=== PATIENT | female | born 1955 | race Hispanic/Latino ===

== ENCOUNTER → 2023-02-05 | Outpatient (CLI) | payer OTHER ==
[2023-02-05 12:12] LABS: BASOPHILS # (AUTO) 0.06 K/uL (0.00-0.20); BASOPHILS % (AUTO) 0.6 % (0.0-5.0); EOSINOPHILS # (AUTO) 0.18 K/uL (0.00-0.70); EOSINOPHILS % (AUTO) 1.7 % (0.0-8.0); HEMATOCRIT 36.5 % (36-48); IMMATURE GRANULOCYTE ABSOLUTE 0.08 K/uL (0-1); LYMPHOCYTES # (AUTO) 2.7 K/uL (1.0-4.8); LYMPHOCYTES % (AUTO) 25.6 % (21.0-51.0); MEAN CORPUSCULAR HGB CONC 31.5 g/dL (32.0-36.0); MONOCYTES # (AUTO) 0.8 K/uL (0.1-1.0); MONOCYTES % (AUTO) 7.6 % (3.0-13.0); NEUTROPHILS # (AUTO) 6.7 K/uL (1.8-7.7); NEUTROPHILS % (AUTO) 63.7 % (40.0-77.0); PLATELET COUNT (AUTO) 320 K/uL (130-400); RED CELL DISTRIBUTION WIDTH 14.7 % (11.0-15.5); WHITE BLOOD COUNT (AUTO) 10.5 K/uL (4.8-10.8)
[2023-02-05 12:21] LABS: INR < 0.93 (0.85-1.15); PROTHROMBIN TIME 9.8 SEC (9.6-11.6)
[2023-02-05 12:22] LABS: PARTIAL THROMBOPLASTIN TIME 25.3 SEC (26.3-35.5)
[2023-02-05 12:26] LABS: CREATININE 0.7 mg/dL (0.5-1.5); POTASSIUM 4.1 mmol/L (3.5-5.1)
== END | disposition home or self-care (01) ==
LOC: LAB 08:16
PROVIDERS: ATTEND Internal Medicine Cardiovascular Disease
DX: I73.9 Peripheral vascular disease, unspecified (principal); I87.2 Venous insufficiency (chronic) (peripheral); I10 Essential (primary) hypertension; E78.5 Hyperlipidemia, unspecified; I45.10 Unspecified right bundle-branch block; M79.662 Pain in left lower leg; M79.661 Pain in right lower leg; E11.51 Type 2 diabetes mellitus with diabetic peripheral angiopathy without gangrene; Z79.82 Long term (current) use of aspirin; Z79.84 Long term (current) use of oral hypoglycemic drugs; Z79.899 Other long term (current) drug therapy
CPT/HCPCS: 36415; 80048; 85025; 85610; 85730

== ENCOUNTER → 2023-02-11 | Outpatient (CLI) | payer OTHER | END | disposition home or self-care (01) | LOC: SHCH 08:28 | PROVIDERS: ATTEND Internal Medicine Cardiovascular Disease | DX: I11.9 Hypertensive heart disease without heart failure (principal); I87.2 Venous insufficiency (chronic) (peripheral); I25.10 Atherosclerotic heart disease of native coronary artery without angina pectoris; I45.10 Unspecified right bundle-branch block; E78.5 Hyperlipidemia, unspecified; E11.9 Type 2 diabetes mellitus without complications | CPT/HCPCS: 93306; 93970 ==

== ENCOUNTER → 2023-05-27 | Outpatient (CLI) | payer OTHER ==
[2023-05-27] MEDS: REGADENOSON 0.4 MG/5 ML PF SYG IVP ONE (11:52)
== END | disposition home or self-care (01) ==
LOC: SHCH 08:26
PROVIDERS: ATTEND Internal Medicine Cardiovascular Disease
DX: I45.10 Unspecified right bundle-branch block (principal); I20.0 Unstable angina
CPT/HCPCS: 78452; 93017; J2785; A9500 ×2; 96374

== ENCOUNTER 2024-01-24 20:12 | Inpatient (IN) | payer OTHER ==
[~2024-01-24] VITALS: Ht 152.4 cm; Wt 82.6 kg
--- NOTE | 2024-01-24 20:27 | NUR ---
PATIENT REPORTS WAS ATTEPTING TO SIT ON A CHAIR WITH WHEELS AT HOME WHEN THE CHAIR MOVED AND SHE FELL BACK HURTING HER TAILBONE AND LEFT SIDE OF HEAD. 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
[2024-01-24 21:21] LABS: BASOPHILS # (AUTO) 0.06 K/uL (0.00-0.20); BASOPHILS % (AUTO) 0.5 % (0.0-5.0); EOSINOPHILS # (AUTO) 0.08 K/uL (0.00-0.70); EOSINOPHILS % (AUTO) 0.7 % (0.0-8.0); HEMATOCRIT 31.6 % (36-48); IMMATURE GRANULOCYTE ABSOLUTE 0.09 K/uL (0-1); LYMPHOCYTES # (AUTO) 2.8 K/uL (1.0-4.8); LYMPHOCYTES % (AUTO) 23.5 % (21.0-51.0); MEAN CORPUSCULAR HEMOGLOBIN 28.7 pg (27.0-33.0); MEAN CORPUSCULAR HGB CONC 32.3 g/dL (32.0-36.0); MONOCYTES # (AUTO) 0.9 K/uL (0.1-1.0); MONOCYTES % (AUTO) 7.4 % (3.0-13.0); NEUTROPHILS # (AUTO) 8.1 K/uL (1.8-7.7); NEUTROPHILS % (AUTO) 67.2 % (40.0-77.0); PLATELET COUNT (AUTO) 273 K/uL (130-400); RED BLOOD CELL COUNT(AUTO) 3.55 MIL/uL (4.00-5.50); RED CELL DISTRIBUTION WIDTH 14.4 % (11.0-15.5); WHITE BLOOD COUNT (AUTO) 12.1 K/uL (4.8-10.8)
[2024-01-24 21:24] LABS: CREATININE 1.4 mg/dL (0.5-1.0); POTASSIUM 4.1 mmol/L (3.5-5.1)
--- NOTE | 2024-01-24 21:35 | HMCIMG ---
SACRUM/COCCYX 2+VWS INDICATION: FALL INJURY TECHNIQUE: SACRUM/COCCYX 2+VWS. FINDINGS/IMPRESSION: No displaced fracture or dislocation is seen. Mild deformity of the distal sacrum which may represent nondisplaced fracture of the proper clinical setting. Correlate clinically. There is mild soft tissue swelling Diffuse osteopenia is seen degrading evaluation of the study.
--- NOTE | 2024-01-24 21:35 | HMCIMG ---
PELVIS 1-2VWS HISTORY: fall on the buttocks TECHNIQUE: Frontal view of the pelvis was performed. FINDINGS/IMPRESSION: No displaced fracture or dislocation is identified. Correlate clinically. The visualized soft tissues appear grossly within normal limits. No radiopaque foreign body is seen.
--- NOTE | 2024-01-24 22:27 | ERN ---
ED Note History of Present Illness Stated Complaint: FALL Chief Complaint: Mechanical Fall Time Seen by MD: 20:16 Dictation: This is a 68-year-old female who presented to the emergency room after sustaining a fall 7:00 p.m.. She came in with her daughter who indicated that she was trying to sit as she was getting ready to eat and missed the chair and landed on the floor not only injuring her gluteal area and lower back but she also hit her head on the left side. No history of any loss of consciousness. No headaches. No blurred vision diplopia motor weakness or seizure activity no facial droop or slurred speech. She was only complaining of some discomfort in the gluteal area. Denied any deformities, bruises or abrasions. No lacerations or any active bleeding. Temperature 97.7 pulse 84 respirations 16 blood pressure 166/71 with a pulse oximetry of 99% on room Her chronic medical problems include diabetes mellitus, hypercholesterolemia Allergies: Coded Allergies: tramadol (Unverified Allergy, Unknown, 01/24/24) Past Medical History Past Medical History: Diabetes-Type II, High Cholesterol Surgical History: None Family History: Negative Social History: Negative History: Not Applicable RN Note Reviewed/Agreed w/PFSH: Yes Review of System Dictation Constitutional: Negative for fever,chills, and weight loss Eyes: Negative for injury, pain,redness, and discharge ENT: Negative for injury,pain or swelling Cardiovascular: Negative for chest pain, palpitations, and edema Respiratory: Negative for shortness of breath, cough, and wheezing, Abdomen/GI: Negative for abdominal pain, nausea, vomiting, diarrhea, and constipation Back: Positive for injury and pain mostly in the gluteal area and lower back : Negative for injury, bleeding and discharge MS/Extremity: Negative for injury and deformity Skin: Negative for rash, and discoloration Neuro: Negative for headache, weakness, numbness, tingling, and seizure Psych: Negative for suicide ideation, homicidal ideation, and hallucinations Initial Vital Sign VS Vital Signs Date Time Temp Pulse Resp B/P (MAP) Pulse Ox O2 Delivery O2 Flow Rate FiO2 01/24/24 20:13 97.7 84 16 166/71 99 Room Air 01/24/24 20:28 0 21 Physical Exam Dictation General: awake, alert, NAD Head/Face: Normocephalic, atraumatic Eyes: PERRL, EOMI, vision at baseline ENT: oral cavity clear, TMs clear, no signs of infection Neck: Trachea midline, supple, no nuchal rigidity Cardiovascular: RRR, normal S1/S2, No MRGs, no JVD Respiratory: CTAB, no respiratory distress, No rales or wheezes Abdomen: Soft, non-tender, non-distended, normal bowel sounds, no guarding or rebound. Skin: Warm, dry, normal turgor, no rash MS/Extremity: Pulses equal, no cyanosis, neurovascular intact, FROM Neuro: COAx4, GCS 15, strength 5/5, CN 2-12 intact, normal cerebellar exam, normal gait, Psych: Normal behavior, mood, and affect normal Extremities-trace edema without any palpable cords, Homans sign is negative Results (Laboratory/Radiology) Laboratory/Radiology Laboratory Tests Test 01/24/24 21:04 White Blood Count 12.1 K/uL (4.8-10.8) H Red Blood Count 3.55 MIL/uL (4.00-5.50) L Hemoglobin 10.2 g/dL (12.0-16.0) L Hematocrit 31.6 % (36-48) L Mean Corpuscular Volume 89.0 fL (79-99) Mean Corpuscular Hemoglobin 28.7 pg (27.0-33.0) Mean Corpuscular Hemoglobin Concent 32.3 g/dL (32.0-36.0) Red Cell Distribution Width 14.4 % (11.0-15.5) Platelet Count 273 K/uL (130-400) Mean Platelet Volume 11.0 fL (7.5-10.5) H Immature Granulocyte % (Auto) 0.7 % (0-1) Neutrophils (%) (Auto) 67.2 % (40.0-77.0) Lymphocytes (%) (Auto) 23.5 % (21.0-51.0) Monocytes (%) (Auto) 7.4 % (3.0-13.0) Eosinophils (%) (Auto) 0.7 % (0.0-8.0) Basophils (%) (Auto) 0.5 % (0.0-5.0) Neutrophils # (Auto) 8.1 K/uL (1.8-7.7) H Lymphocytes # (Auto) 2.8 K/uL (1.0-4.8) Monocytes # (Auto) 0.9 K/uL (0.1-1.0) Eosinophils # (Auto) 0.08 K/uL (0.00-0.70) Basophils # (Auto) 0.06 K/uL (0.00-0.20) Absolute Immature Granulocyte (auto 0.09 K/uL (0-1) Nucleated Red Blood Cells 0.0 % (0.0-0.19) Sodium Level 138 mmol/L (136-145) Potassium Level 4.1 mmol/L (3.5-5.1) Chloride Level 104 mmol/L (101-111) Carbon Dioxide Level 28 mmol/L (21-32) Blood Urea Nitrogen 27 mg/dL (7-18) H Creatinine 1.4 mg/dL (0.5-1.0) H Glomerular Filtration Rate Calc 40 mL/min (>90) Random Glucose 128 mg/dL (70-105) H Total Calcium 9.3 mg/dL (8.5-10.1) Total Creatine Kinase 52 U/L (21-232) Labs Reviewed?: Yes ED Course ED Course Orders Procedure Category Date Status Time Sacrum/Coccyx 2+Vws RAD 01/24/24 Resulted 20:32 Pelvis 1-2vws RAD 01/24/24 Resulted 20:26 Ct Head/Brain W/O CT 01/24/24 Resulted Contrast 20:55 Cbc With Differential LAB 01/24/24 Complete 20:55 Basic Metabolic Panel LAB 01/24/24 Complete 20:55 Urinalysis Profile LAB 01/24/24 Logged 20:55 Morphine 2mg Syg PHA 01/24/24 Complete (Morphine 2mg Syg) 23:00 Remove Pt Off CPOE 01/24/24 Transmitted C-Collar. (Er) 22:37 Creatine Kinase, Total LAB 01/24/24 Complete 22:40 0.9%Nacl 1000ml (Ns PHA 01/24/24 In Process 1000ml) 23:00 Edm Admit Bridge Order ADM 01/24/24 Transmitted 23:11 Admit Orders ADM 01/24/24 Transmitted 23:11 Admit Orders ADM 01/24/24 Transmitted 23:12 Consistent Carb DIET 01/25/24 Transmitted Breakfast Acetaminophen 325 Tab PHA 01/24/24 In Process (Tylenol 325mg Tab 23:30 Ondansetron 4mg Inj PHA 01/24/24 In Process (Zofran 4mg Inj) 23:30 Morphine 2mg Syg PHA 01/24/24 In Process (Morphine 2mg Syg) 23:30 Enoxaparin Sodium 30 PHA 01/25/24 In Process Mg/0.3 Ml (Lovenox) 09:00 Insulin Lispro 100 PHA 01/24/24 In Process Unit/Ml 3ml (Humalog 23:30 Glucometer Checks CPOE 01/24/24 Transmitted Ac/Hs 23:12 Cbc With Differential LAB 01/25/24 Verified 04:00 Basic Metabolic Panel LAB 01/25/24 Verified 04:00 Magnesium LAB 01/25/24 Verified 04:00 Hemoglobin A1c LAB 01/25/24 Verified 04:00 *Nursing CPOE 01/24/24 Transmitted Communication: 23:12 Current Medications Medications (Trade) Dose Ordered Sig/[place] Route PRN Reason Start Time Stop Time Status Last Admin Dose Admin Morphine Sulfate (morPHINE 2MG SYG) 2 mg ONCE ONCE IVP 01/24/24 23:00 01/24/24 23:01 DC 01/24/24 23:01 Sodium Chloride 1,000 ml @ 125 mls/hr ONCE ONCE IV 01/24/24 23:00 01/25/24 06:59 01/24/24 23:01 Vital Signs Date Time Temp Pulse Resp B/P (MAP) Pulse Ox O2 Delivery O2 Flow Rate FiO2 01/24/24 23:11 66 18 132/47 97 Room Air* 0 21 01/24/24 20:28 78 18 174/69 99 Room Air* 0 21 01/24/24 20:13 97.7 84 16 166/71 99 Room Air We will perform diagnostic labs, advanced imaging and administer medications according to the patient's complaint. Once the results are available, will review and personally interpreted the labs to rule out any acute life- threatening emergency the trach require immediate intervention and treatment. I will then re-evaluate the patient after treatment and diagnostic exams have return to determine whether the patient requires any further testing, can safely be discharged home or need further admission to hospital for additional treatment and evaluation. Reviewed labs CBC showed a white count of 12.1 hemoglobin 10.2. BNP 7 showed a BUN and creatinine of 27 and 1.4. Do not have any old labs to compare. Blood glucose is slightly elevated. 10:25 p.m. x-ray of the pelvis as well as lower sacral area was overall unremarkable although the radiologist did mention that in appropriate clinical setting coccyx area could have a nondisplaced fracture. CT scan of the head is pending at this time I recommended admission to the hospital for the next 24-48 hours not only for pain management, for gentle hydration with a potential rhabdomyolysis and to pursue additional imaging studies of lumbar area or hollow viscera as needed based on her any additional or new symptoms. She is agreeable 11:00 p.m. patient accepted by covering for Dr. Chandra for admission and further management. Medical Decision Making MDM MDM: Differential diagnosis: Contusion, ligamental tear, compression fractures, hollow viscus injury Rationale: Tests considered and ordered secondary to shared decision making include: labs, ECG and radiology Previous outside records reviewed: Old ER visits. Risk of complication and/or morbidity or mortality of patient management: None Medications-Per medication reconciliation Need for hospitalization: Patient does meet criteria for hospitalization. Need for emergency major/minor surgery: No There are no social concerns with this patient. Prescription drug management Prescriptions will include symptomatic care Patient's prior external medical records from other ER visits were reviewed by me as indicated. Prior testing and results from previous visits were reviewed. Prior tests were taken into account with medical decision making and resource utilization, independent historian/historians were used to obtain complete medical history. I independently interpreted the test that were performed, results were reviewed by me and considered findings on radiology if ordered. Medical management and examination interpretation discussions were had by me with other qualified healthcare professionals as indicated for the patient's care. Problem List Problem List: (1) Fall from standing (2) Closed head injury (3) Scalp hematoma (4) Uncontrolled hypertension (5) Acute kidney injury DX & DISP Disposition: Inpatient Departure Impression: Primary Impression: Fall from standing Additional Impressions: Closed head injury, Scalp hematoma, Uncontrolled hypertension, Acute kidney injury, Pain, Fx sacrum/coccyx-closed Condition: Stable Additional Instructions: Patient was informed of all the diagnostic labs and procedures conducted in the emergency room today and demonstrated understanding of the results. I personally reviewed and interpreted all the diagnostic exams performed in the ER today. The patient will be admitted to the hospital for further treatment and evaluation. Disposition-admit to facility Condition-stable/guarded Course-uncertain at this time Pain status-decreased Assessment-exam unchanged Admission Certification- I certify that the patients status is appropriate and is based on my best clinical judgment and the patient's condition as documented in the medical records Referrals: GRANT CHANDRA MD (PCP) ERA JC MD Jan 24, 2024 22:27
--- NOTE | 2024-01-24 22:34 | HMCIMG ---
CT HEAD/BRAIN W/O CONTRAST HISTORY: Postop injury COMPARISON: None TECHNIQUE: Multiple sequential axial images of the head were obtained from the base of the skull through vertex. Patient was not given contrast through intravenous route. FINDINGS: The ventricles and extraventricular CSF spaces are dilated consistent with cerebral atrophy. Nonspecific white matter changes seen. There are bilateral basal ganglia calcifications There is no midline shift, mass effect or herniation. No acute intracranial bleed is seen. Visualized portion of the paranasal sinuses are grossly within normal limits. IMPRESSION: 1. No acute intracranial bleed is seen. 2. Atrophy with white matter changes. CT was performed with one or more following dose reduction techniques: automated exposure control, adjustment of the mA and kv according to patient's size, or use of a iterative reconstruction technique.
[2024-01-24] MEDS: 0.9%NACL 1000ML 1,000 ML IV ONE (23:01)
[2024-01-24] MEDS: morPHINE 2 MG SYG IVP ONE (23:01)
[2024-01-24] MEDS ORDERED: acetaMINOPHEN 325 MG TAB PO PRN (23:30)
[2024-01-24] MEDS ORDERED: morPHINE 2 MG SYG IVP PRN (23:30)
[2024-01-24] MEDS ORDERED: INSULIN LISpro 100 UNIT/ML 3ML SQ PRN (23:30)
[2024-01-24] MEDS ORDERED: ondanSETRON 4MG INJ IVP PRN (23:30)
[2024-01-24 23:45] VITALS: BP 160/86; PULSE 68; RESP 19; TEMP 97.7
[2024-01-25 03:48] LABS: ADD UA MICROSCOPIC YES; APPEARANCE,URINE CLEAR (CLEAR); BILIRUBIN,URINE NEGATIVE (NEGATIVE); COLOR,URINE COLORLESS (YELLOW); GLUCOSE, URINE (UA) NEGATIVE (NEGATIVE); KETONES,URINE NEGATIVE (NEGATIVE); LEUKOCYTE ESTERASE ,URINE 25 Leu/uL (NEGATIVE); NITRATE,URINE NEGATIVE (NEGATIVE); OCCULT BLOOD,URINE NEGATIVE (NEGATIVE); PROTEIN,URINE NEGATIVE (NEGATIVE); UROBILINOGEN,URINE 0.2 mg/dL (0.2-1.0)
[2024-01-25 03:50] LABS: RBC,URINE 0-1 /HPF (0-1); SQUAMOUS EPITHELIAL CELL,UR RARE /HPF (0-2)
[2024-01-25 04:00] VITALS: BP 127/56; PULSE 67; RESP 17; TEMP 97.5
[2024-01-25 05:08] LABS: BASOPHILS # (AUTO) 0.05 K/uL (0.00-0.20); BASOPHILS % (AUTO) 0.5 % (0.0-5.0); EOSINOPHILS # (AUTO) 0.13 K/uL (0.00-0.70); EOSINOPHILS % (AUTO) 1.4 % (0.0-8.0); HEMATOCRIT 30.1 % (36-48); IMMATURE GRANULOCYTE ABSOLUTE 0.06 K/uL (0-1); LYMPHOCYTES # (AUTO) 2.8 K/uL (1.0-4.8); LYMPHOCYTES % (AUTO) 29.8 % (21.0-51.0); MEAN CORPUSCULAR HEMOGLOBIN 28.2 pg (27.0-33.0); MEAN CORPUSCULAR HGB CONC 31.6 g/dL (32.0-36.0); MEAN CORPUSCULAR VOLUME 89.3 fL (79-99); MONOCYTES # (AUTO) 0.7 K/uL (0.1-1.0); NEUTROPHILS # (AUTO) 5.7 K/uL (1.8-7.7); NEUTROPHILS % (AUTO) 60.7 % (40.0-77.0); PLATELET COUNT (AUTO) 240 K/uL (130-400); RED BLOOD CELL COUNT(AUTO) 3.37 MIL/uL (4.00-5.50); RED CELL DISTRIBUTION WIDTH 14.5 % (11.0-15.5); WHITE BLOOD COUNT (AUTO) 9.4 K/uL (4.8-10.8)
[2024-01-25 05:15] LABS: CREATININE 1.1 mg/dL (0.5-1.0); MAGNESIUM 1.8 mg/dL (1.80-2.40)
[2024-01-25 05:27] LABS: HEMOGLOBIN A1C 8.1 % (4.0-6.0)
[2024-01-25 07:55] VITALS: BP 122/65; PULSE 63; RESP 18; TEMP 98.1
[2024-01-25] MEDS ORDERED: ASPI-1197 PO (08:27)
[2024-01-25] MEDS ORDERED: LOSA100T59 PO (08:27)
[2024-01-25] MEDS ORDERED: DOXY100C5 PO (08:27)
[2024-01-25] MEDS ORDERED: GLIP-162 PO (08:27)
[2024-01-25] MEDS ORDERED: ATOR20TA65 PO (08:27)
[2024-01-25] MEDS ORDERED: METF-444 PO (08:27)
[2024-01-25] MEDS ORDERED: PANT20TA18 PO (08:28)
[2024-01-25] MEDS ORDERED: SEMA1PEN3 SQ (08:29)
[2024-01-25] MEDS: acetaMINOPHEN 325 MG TAB PO PRN (08:32)
[2024-01-25 08:33] VITALS: O2SAT 97
[2024-01-25] MEDS: ENOXAPARIN SODIUM 30 MG/0.3 ML SQ SCH (08:33)
[2024-01-25] MEDS: PANTOPrazole 40 MG TAB DR PO SCH (08:56)
[2024-01-25] MEDS: glipiZIDE XL 5MG TAB PO SCH (08:56)
[2024-01-25] MEDS ORDERED: DOXYCYCLINE HYCLATE PO SCH (09:00)
[2024-01-25] MEDS ORDERED: ASPIRIN 81MG CHEW TAB PO SCH (09:00)
[2024-01-25] MEDS: INSULIN humuLIN R 100 UNIT/ML 3ML SQ SCH (11:30)
--- NOTE | 2024-01-25 11:34 | NUR ---
DCP Pt asha, aermichael, oriented lives with spouse Finesse Rausch [phone] in mobile home. Pt states she has a cane and a provider from [facility] home care. Pt anticipates discharge plan is for home. Addendum: 01/25/24 at 1138 by BINDU HERNANDEZ RN Amended: Links added.
--- NOTE | 2024-01-25 11:40 | HMCIMG ---
CT PELVIS W/O CONTRAST HISTORY: possible fracture TECHNIQUE: CT pelvis was performed without contrast. Coronal and sagittal reformats were obtained. CT was performed with one or more of the following dose reduction techniques: Automated exposure control, adjustment of the mA and/or kV according to the patient's size, or use of the iterative reconstruction technique. FINDINGS: No displaced fracture or dislocation is seen. Diffuse osteopenia is seen degrading evaluation of the study. 1 cm sclerotic focus seen in the neck of the right femur and 1.2 cm sclerotic focus in superior left acetabulum which may may represent bone islands, other etiologies not excluded. Correlate clinically. IMPRESSION: 1. No displaced fracture or dislocation is seen. 2. Diffuse osteopenia is seen degrading evaluation of the study. 3. 1 cm sclerotic focus seen in the neck of the right femur and 1.2 cm sclerotic focus in superior left acetabulum which may may represent bone islands, other etiologies not excluded. Correlate clinically.
[2024-01-25 11:50] VITALS: BP 142/69; PULSE 70; RESP 18; TEMP 97.7
[2024-01-25] MEDS: LACTULOSE 20 GM/30 ML UDCUP PO SCH (12:09)
[2024-01-25] MEDS: MAGNESIUM 2GM PREMIX 50ML 50 ML IV PRN (12:18)
--- NOTE | 2024-01-25 12:56 | NUR ---
RAD NUCLEAR MEDICINE SPOKE TO NURSE ELIZONDO TO CONFIRM DR WANTED A WHOLE BODY SCAN DUE TO ORDER DX. NURSE ELIZONDO STATED DR. CHAU WAS ORDERED THE WHOLE BODY BONE SCAN.
[2024-01-25 16:28] VITALS: BP 130/60; PULSE 64; RESP 18; TEMP 97.9
[2024-01-25 20:00] VITALS: BP 148/69; PULSE 68; RESP 18; TEMP 97.9; O2SAT 97
[2024-01-25] MEDS: LoSARTan 100 MG TABLET PO SCH (21:33)
[2024-01-25] MEDS: atorVAStatin 20 MG TABLET PO SCH (21:33)
[2024-01-25] MEDS: ASPIRIN 81MG CHEW TAB PO SCH (21:33)
--- NOTE | 2024-01-25 22:00 | HMCIMG ---
Exam Type: NM BONE SCAN WHOLE BODY Clinical Information: SCLEROTIC FOCUS ON RIGHT FEMUR Comparison: None RADIOPHARMACEUTICAL: Intravenous administration of 25.9 mCi of Tc-99m MDP . TECHNIQUE: Three-hour delayed anterior and posterior whole-body and upper extremities and lateral views of the skull and posterior obliques of the thorax were obtained. The distal humeri, the elbows, and the proximal and mid forearms are incompletely included in the films. FINDINGS: There is adequate, homogenous, and symmetric radiopharmaceutical uptake through out the axial and appendicular skeleton . Biodistribution in soft tissues and kidneys is unremarkable. IMPRESSION: No evidence of metastatic disease.
[2024-01-26] VITALS (7 sets, daily range): BP systolic 112–160; BP diastolic 54–75; PULSE 66–83; RESP 17–18; TEMP 97.5–98.4; O2SAT 97–98
--- NOTE | 2024-01-26 06:00 | PN ---
DATE OF SERVICE: 01/25/2024 INFECTIOUS DISEASE FOLLOWUP NOTE SUBJECTIVE: The patient is an elderly female, who is seen today. No fever or chills. No nausea, vomiting. No abdominal pain. Denied cough, shortness of breath. No palpitations or orthopnea. No depression. No suicidal ideation. No heat or cold intolerance. No dysuria or hematuria. CT of the pelvis done which shows some sclerotic lesion in left acetabulum. PHYSICAL EXAMINATION: VITAL SIGNS: Temperature 96.8. EYES: No icterus. Pupils are equal and reactive. HENT: No oral thrush seen. Moist oral mucosa. NECK: Supple. No JVD or thyromegaly. LUNGS: Good air entry. No rales. No rhonchi . CARDIOVASCULAR: S1, S2, regular. ABDOMEN: Full. Soft. Nontender. Bowel sounds are present. CENTRAL NERVOUS SYSTEM: Awake, alert, oriented x 3. No focal deficits. SKIN: No rashes. No itchiness. LYMPHATIC: No peripheral lymphadenopathy. BACK: No deformity. No pressure ulcer. HEMATOLOGIC: No bleeding or petechial lesions seen. MUSCULOSKELETAL: No joint swelling, erythema or tenderness. ASSESSMENT: A 68-year-old female presenting with fall. CURRENT PROBLEMS: Include: * Mechanical fall. * Diabetes mellitus. * . * Hypertension. * Acute renal failure. * Obesity. PLAN: * Continue antidiabetic. * Continue nutritional support. * Continue pain management. * Continue GI prophylaxis. * Monitor electrolytes. * Continue DVT prophylaxis. * . * The patient to be evaluated by Oncology. TID: [id number] RECEIPT: [id number]
--- NOTE | 2024-01-26 07:19 | HP ---
PRESENTING COMPLAINT: Fall and pelvic pain. HISTORY OF PRESENT ILLNESS: A 68-year-old female with history of diabetes mellitus, hypertension, dyslipidemia, obesity, who presented to the hospital with above complaints. The patient claims she tripped and fell, landed on her buttocks. Complaining of pain to the buttocks area. The patient had CT scan of the brain done, which was unremarkable. X-ray of the pelvis is unremarkable. The patient has no cough, no shortness of breath. Denies chest pain, palpitations or orthopnea. No depression, no suicidal ideation. Denies any dyspnea, slurred speech, or limb weakness. PAST MEDICAL HISTORY: * Hypertension. * Diabetes mellitus. * Dyslipidemia. * Obesity. PAST SURGICAL HISTORY: None. ALLERGIES: TRAMADOL. HOME MEDICATIONS: To be reviewed. SOCIAL HISTORY: Lives with . No alcohol, tobacco or illicit drug use. FAMILY HISTORY: Positive for diabetes mellitus. REVIEW OF SYSTEMS: CONSTITUTIONAL: No fever, no chills. No weight loss or night sweats. EYES: No eye pain. No photophobia or diplopia. HENT: No sore throat. No rhinorrhea or earache. NECK: No neck pain or neck swelling. RESPIRATORY: No cough. No hemoptysis or pleuritic pain. CARDIOVASCULAR: No chest pain. No palpitations or orthopnea. GASTROINTESTINAL: Denies nausea, vomiting or abdominal pain. GENITOURINARY: No dysuria, urgency or urinary frequency. CENTRAL NERVOUS SYSTEM: No headache, dyspnea or slurred speech. PSYCHIATRIC: No depression. No suicidal ideation. MUSCULOSKELETAL: No joint pain. No joint swelling. PHYSICAL EXAMINATION: GENERAL: Elderly female, awake. VITAL SIGNS: Temperature 98.3, pulse 75, respiratory rate 22. EYES: No icterus. Pupils are equal and reactive. HENT: No oral thrush seen. Moist oral mucosa. NECK: Supple. No JVD or thyromegaly. LUNGS: Good air entry. No rales. No rhonchi. CARDIOVASCULAR: S1, S2 regular. No murmur heard. ABDOMEN: Full. Soft. Nontender. Bowel sounds are present. CENTRAL NERVOUS SYSTEM: Awake, alert, oriented x 3. No focal deficits. SKIN: No rashes. No itchiness. LYMPHATIC: No peripheral lymphadenopathy. BACK: No deformity. No pressure ulcer. DERMATOLOGIC: No bleeding or petechial lesions. MUSCULOSKELETAL: No joint swelling, erythema or tenderness. LABORATORY DATA: Sodium 138, potassium 4.1, BUN 27, creatinine 1.4. WBC 12.1, hemoglobin 10.2, platelet count 273. Urinalysis; wbc's 5, leukocyte esterase . RADIOLOGY: CT of the brain unremarkable. X-ray of the pelvis unremarkable. ASSESSMENT: A 68-year-old female presenting with fall and pelvic pain. CURRENT PROBLEMS: Include: * Mechanical fall. * Diabetes mellitus. * Hypertension. * Acute renal failure. * Obesity. PLAN: * Admit the patient to medical floor. * Obtain CT of the pelvis. * Tylenol as needed for pain. * Morphine as needed for pain. * Monitor electrolytes. * ADA diet. * Insulin sliding scale. * Lovenox for DVT prophylaxis. TID: [id number] RECEIPT: [id number]
--- NOTE | 2024-01-26 14:17 | CONS ---
CONSULT NOTE: A 68-year-old female with history of diabetes mellitus, hypertension, dyslipidemia, obesity, who presented to the hospital with above complaints. The patient claims she tripped and fell, landed on her buttocks. Complaining of pain to the buttocks area. The patient had CT scan of the brain done, which was unremarkable. X-ray of the pelvis is unremarkable. The patient has no cough, no shortness of breath. Denies chest pain, palpitations or orthopnea. No depression, no suicidal ideation. Denies any dyspnea, slurred speech, or limb weakness. Patient actually had lytic lesion to right and left femur. Bone scan was done which is negative. This could be consistent with plasma cell dyscrasia. PAST MEDICAL HISTORY: * Hypertension. * Diabetes mellitus. * Dyslipidemia. * Obesity. PAST SURGICAL HISTORY: None. ALLERGIES: TRAMADOL. HOME MEDICATIONS: To be reviewed. SOCIAL HISTORY: Lives with . No alcohol, tobacco or illicit drug use. FAMILY HISTORY: Positive for diabetes mellitus. REVIEW OF SYSTEMS: CONSTITUTIONAL: No fever, no chills. No weight loss or night sweats. EYES: No eye pain. No photophobia or diplopia. HENT: No sore throat. No rhinorrhea or earache. NECK: No neck pain or neck swelling. RESPIRATORY: No cough. No hemoptysis or pleuritic pain. CARDIOVASCULAR: No chest pain. No palpitations or orthopnea. GASTROINTESTINAL: Denies nausea, vomiting or abdominal pain. GENITOURINARY: No dysuria, urgency or urinary frequency. CENTRAL NERVOUS SYSTEM: No headache, dyspnea or slurred speech. PSYCHIATRIC: No depression. No suicidal ideation. MUSCULOSKELETAL: No joint pain. No joint swelling. PHYSICAL EXAMINATION: GENERAL: Elderly female, awake. VITAL SIGNS: Temperature 98.3, pulse 75, respiratory rate 22. EYES: No icterus. Pupils are equal and reactive. HENT: No oral thrush seen. Moist oral mucosa. NECK: Supple. No JVD or thyromegaly. LUNGS: Good air entry. No rales. No rhonchi. CARDIOVASCULAR: S1, S2 regular. No murmur heard. ABDOMEN: Full. Soft. Nontender. Bowel sounds are present. CENTRAL NERVOUS SYSTEM: Awake, alert, oriented x 3. No focal deficits. SKIN: No rashes. No itchiness. LYMPHATIC: No peripheral lymphadenopathy. BACK: No deformity. No pressure ulcer. DERMATOLOGIC: No bleeding or petechial lesions. MUSCULOSKELETAL: No joint swelling, erythema or tenderness. Assessment 1. Lytic lesion to the right and left femur. Bone scan is negative. This patient should not could have plasma cell dyscrasia/multiple myeloma 2. Diabetes mellitus 3. Hypertension 4. Acute on chronic renal failure 5. Anemia Plan 1. Peripheral blood smear showed red blood cells to be normocytic normochromic. There was no fragment cell or schistocyte. There is no teardrop cell. There is no pelger-Huet cell. White blood cell with no blasts. Platelet was normal in morphology and count. 2. There was hypersegmented neutrophils. This patient to be started on folic acid 1 mg p.o. daily and vitamin B12 1000 mcg p.o. daily. 3. There is rouleaux phenomena. We will ask for SPEP, UPEP and free light chain. If there is monoclonal protein we will do a bone marrow biopsy. 4. This patient actually could have multiple myeloma. So we need possibly to do bone marrow biopsy later on. 5. But if this patient is stable she could be discharged to follow-up with us as outpatient. Laboratory Tests Test 01/25/24 15:51 01/25/24 19:58 01/26/24 05:12 01/26/24 10:35 Whole Blood Glucose 187 MG/DL (70-110) #H 180 MG/DL (70-110) H 141 MG/DL (70-110) H 200 MG/DL (70-110) H JULY DE LA FUENTE MD Jan 26, 2024 14:17
[2024-01-26 14:46] LABS: % IRON SATURATION 10.6 % (22-44)
--- NOTE | 2024-01-26 15:23 | NUR ---
note 24 hour urine collection started now
--- NOTE | 2024-01-26 21:14 | PN ---
INFECTIOUS DISEASE PROGRESS NOTE Date of Service: Jan 26, 2024 SUBJECTIVE: This is a 68-year-old female patient with past medical history of diabetes hypertension who presented to after sustaining a fall at home and having pelvis pain. Voiced pain mostly on the coccyx area. Patient is seen and examined at bedside in room 303. Patient is awake, alert and oriented x3. Patient is able to ambulate and still voicing pain and the coccygeal area. CT of the pelvis showed bone islands. A bone scan was obtained and was negative for metastatic disease. Training And Quality Manager following patient. No fever, temperature is 97.9. We will continue to follow patient's care. PHYSICAL EXAM EYES: Anicteric. Pupils equal and reactive. HENT: No oral thrush seen, moist Oral mucosa NECK: Supple, no JVD or thyromegaly. LUNGS: Good air entry. No rales, no rhonchi. CARDIOVASCULAR: S1, S2 regular. No murmur heard. ABDOMEN: Soft, non tender, bowel sounds present, no organomegaly CENTRAL NERVOUS SYSTEM: Awake, alert, oriented x 3. SKIN: No rashes, no swelling. LYMPHATICS: No peripheral lymphadenopathy MUSCULOSKELETAL: No joint swelling, erythema or tenderness. EXTREMITIES: No cyanosis or clubbing BACK: No deformity, no pressure ulcer. GENITOURINARY: No dysuria or hematuria Vital Sign (Last 12 Hours) 01/26/24 01/26/24 11:19 16:34 Temp 97.5 98.1 Pulse 81 77 Resp 17 17 B/P (MAP) 151/75 160/70 Pulse Ox 98 98 O2 Delivery Room Air Room Air Intake & Output (last 24hrs) 01/25/24 01/25/24 01/26/24 15:00 23:00 07:00 Intake Total 350 ml 200 ml Balance 350 ml 200 ml LABS: Laboratory: Test 01/26/24 20:09 01/26/24 14:04 01/25/24 04:50 01/25/24 03:38 Range/Units Whole Blood Glucose 146 H 70-110 MG/DL Iron Level 26 L 50-170 mcg/dL Total Iron Binding Capacity 244 L 250-450 mcg/dL Percent Iron Saturation 10.6 L 22-44 % White Blood Count 9.4 4.8-10.8 K/uL Red Blood Count 3.37 L 4.00-5.50 MIL/uL Hemoglobin 9.5 L 12.0-16.0 g/dL Hematocrit 30.1 L 36-48 % Mean Corpuscular Volume 89.3 79-99 fL Mean Corpuscular Hemoglobin 28.2 27.0-33.0 pg Mean Corpuscular Hemoglobin Concent 31.6 L 32.0-36.0 g/dL Red Cell Distribution Width 14.5 11.0-15.5 % Platelet Count 240 130-400 K/uL Mean Platelet Volume 10.8 H 7.5-10.5 fL Immature Granulocyte % (Auto) 0.6 0-1 % Neutrophils (%) (Auto) 60.7 40.0-77.0 % Lymphocytes (%) (Auto) 29.8 21.0-51.0 % Monocytes (%) (Auto) 7.0 3.0-13.0 % Eosinophils (%) (Auto) 1.4 0.0-8.0 % Basophils (%) (Auto) 0.5 0.0-5.0 % Neutrophils # (Auto) 5.7 1.8-7.7 K/uL Lymphocytes # (Auto) 2.8 1.0-4.8 K/uL Monocytes # (Auto) 0.7 0.1-1.0 K/uL Eosinophils # (Auto) 0.13 0.00-0.70 K/uL Basophils # (Auto) 0.05 0.00-0.20 K/uL Absolute Immature Granulocyte (auto 0.06 0-1 K/uL Nucleated Red Blood Cells 0.0 0.0-0.19 % Sodium Level 141 136-145 mmol/L Potassium Level 4.0 3.5-5.1 mmol/L Chloride Level 107 101-111 mmol/L Carbon Dioxide Level 29 21-32 mmol/L Blood Urea Nitrogen 24 H 7-18 mg/dL Creatinine 1.1 H 0.5-1.0 mg/dL Glomerular Filtration Rate Calc 54 >90 mL/min Random Glucose 75 70-105 mg/dL Hemoglobin A1c 8.1 H 4.0-6.0 % Estimated Average Glucose (eAG) 186 H 70-126 mg/dL Total Calcium 8.6 8.5-10.1 mg/dL Magnesium Level 1.80 1.80-2.40 mg/dL Urine Color COLORLESS YELLOW Urine Appearance CLEAR CLEAR Urine pH 5.0 5.0-8.0 Urine Specific [place] 1.005 1.001-1.031 Urine Protein NEGATIVE NEGATIVE mg/dL Urine Glucose (UA) NEGATIVE NEGATIVE mg/dL Urine Ketones NEGATIVE NEGATIVE mg/dL Urine Occult Blood NEGATIVE NEGATIVE Urine Nitrate NEGATIVE NEGATIVE Urine Bilirubin NEGATIVE NEGATIVE mg/dL Urine Urobilinogen 0.2 0.2-1.0 mg/dL Urine Leukocyte Esterase 25 H NEGATIVE Geovanni/uL Urine RBC 0-1 0-1 /HPF Urine WBC 2-5 H 0-1 /HPF Urine Squamous Epithelial Cells RARE 0-2 /HPF Urine Bacteria None None Seen /HPF ASSESSMENT: Status post mechanical fall. Possible nondisplaced fracture of the sacrum. Acute renal failure, resolving. Diabetes mellitus. Anemia. PLAN: Continue iron supplements as recommended by auto self service station attendant.. Continue pain management. Continue GI prophylaxis. Glucometer checks a.c./hs and cover with insulin per sliding scale protocol. We will monitor electrolytes. This case was reviewed and discussed with my supervising physician and the above assessment and plan was formulated and agreed upon. ATTESTATION BY PHYSICIAN I have seen and examined the patient. I reviewed the documentation, medical decision making, and treatment plan as noted by the mid-level provider above. I agree with the findings and plan of care. BRIONNA CHAU MD, MIRTA L [facility] Jan 26, 2024 21:14
[2024-01-27] VITALS (8 sets, daily range): BP systolic 127–153; BP diastolic 53–69; PULSE 60–83; RESP 18–19; TEMP 97.8–98.6; O2SAT 97–98
[2024-01-27 10:13] LABS: MEAN CORPUSCULAR HEMOGLOBIN 28.3 pg (27.0-33.0); MEAN CORPUSCULAR HGB CONC 31.9 g/dL (32.0-36.0); MEAN CORPUSCULAR VOLUME 88.6 fL (79-99); RED BLOOD CELL COUNT(AUTO) 3.5 MIL/uL (4.00-5.50); RED CELL DISTRIBUTION WIDTH 14.3 % (11.0-15.5); WHITE BLOOD COUNT (AUTO) 8.8 K/uL (4.8-10.8)
[2024-01-27 10:19] LABS: POTASSIUM 3.9 mmol/L (3.5-5.1)
--- NOTE | 2024-01-27 13:55 | PN ---
A 68-year-old female with history of diabetes mellitus, hypertension, dyslipidemia, obesity, who presented to the hospital with above complaints. The patient claims she tripped and fell, landed on her buttocks. Complaining of pain to the buttocks area. The patient had CT scan of the brain done, which was unremarkable. X-ray of the pelvis is unremarkable. The patient has no cough, no shortness of breath. Denies chest pain, palpitations or orthopnea. No depression, no suicidal ideation. Denies any dyspnea, slurred speech, or limb weakness. Patient actually had lytic lesion to right and left femur. Bone scan was done which is negative. This could be consistent with plasma cell dyscrasia. SPEP, UPEP and free light chain was ordered. Patient was found to have iron deficiency anemia. PHYSICAL EXAMINATION: GENERAL: Elderly female, awake. VITAL SIGNS: Temperature 98.3, pulse 75, respiratory rate 22. EYES: No icterus. Pupils are equal and reactive. HENT: No oral thrush seen. Moist oral mucosa. NECK: Supple. No JVD or thyromegaly. LUNGS: Good air entry. No rales. No rhonchi. CARDIOVASCULAR: S1, S2 regular. No murmur heard. ABDOMEN: Full. Soft. Nontender. Bowel sounds are present. CENTRAL NERVOUS SYSTEM: Awake, alert, oriented x 3. No focal deficits. SKIN: No rashes. No itchiness. LYMPHATIC: No peripheral lymphadenopathy. BACK: No deformity. No pressure ulcer. DERMATOLOGIC: No bleeding or petechial lesions. MUSCULOSKELETAL: No joint swelling, erythema or tenderness. Assessment 1. Lytic lesion to the right and left femur. Bone scan is negative. This patient should not could have plasma cell dyscrasia/multiple myeloma SPEP, UPEP and free light chain was ordered. 2. Diabetes mellitus 3. Hypertension 4. Acute on chronic renal failure 5. Iron deficiency anemia with the patient was started on IV iron Plan 1. Peripheral blood smear showed red blood cells to be normocytic normochromic. There was no fragment cell or schistocyte. There is no teardrop cell. There is no pelger-Huet cell. White blood cell with no blasts. Platelet was normal in morphology and count. 2. There was hypersegmented neutrophils. This patient to Continue folic acid 1 mg p.o. daily and vitamin B12 1000 mcg p.o. daily. 3. There is rouleaux phenomena. We will ask for SPEP, UPEP and free light chain. If there is monoclonal protein we will do a bone marrow biopsy. 4. This patient actually could have multiple myeloma. So we need possibly to do bone marrow biopsy later on. 5. But if this patient is stable she could be discharged to follow-up with us as outpatient. Vitals/Labs Vital Signs Date Time Temp Pulse Resp B/P (MAP) Pulse Ox O2 Delivery O2 Flow Rate FiO2 01/27/24 11:35 98.1 83 18 140/68 98 Room Air 01/27/24 08:00 0 21 Laboratory Tests 01/27/24 09:54 Medications Current Medications Morphine Sulfate 2 mg ONCE ONCE IVP Last administered on 01/24/24at 23:01; Start 01/24/24 at 23:00; Stop 01/24/24 at 23:01; Status DC Sodium Chloride 1,000 ml @ 125 mls/hr ONCE ONCE IV Last administered on 01/24/24at 23:01; Start 01/24/24 at 23:00; Stop 01/24/24 at 23:37; Status DC Acetaminophen 650 mg Q4H PRN PO; Start 01/24/24 at 23:30; Stop 02/23/24 at 23:29 Ondansetron HCl 4 mg Q6H PRN IVP; Start 01/24/24 at 23:30; Stop 02/23/24 at 23:29 Morphine Sulfate 2 mg Q6H PRN IVP; Start 01/24/24 at 23:30; Stop 01/31/24 at 23:29 Enoxaparin Sodium 30 mg DAILY SQ Last administered on 01/27/24at 08:32; Start 01/25/24 at 09:00; Stop 02/24/24 at 08:59 Insulin Human Lispro S/S # 1 BIDAC PRN SQ; Start 01/24/24 at 23:30; Stop 02/23/24 at 23:29 Acetaminophen 650 mg Q6H PRN PO Last administered on 01/27/24at 08:31; Start 01/25/24 at 08:30; Stop 02/24/24 at 08:29 Aspirin 81 mg DAILY PO; Start 01/25/24 at 09:00; Stop 01/25/24 at 08:59; Status DC Atorvastatin Calcium 20 mg HS PO Last administered on 01/26/24at 21:56; Start 01/25/24 at 21:00; Stop 02/24/24 at 20:59 Glipizide 5 mg DAILY PO Last administered on 01/27/24at 08:31; Start 01/25/24 at 09:00; Stop 02/24/24 at 08:59 Losartan Potassium 100 mg HS PO Last administered on 01/26/24at 21:56; Start 01/25/24 at 21:00; Stop 02/24/24 at 20:59 Miscellaneous Medication 1 cap BID PO; Start 01/25/24 at 09:00; Stop 01/25/24 at 08:52; Status DC Pantoprazole Sodium 40 mg DAILY PO Last administered on 01/27/24at 08:30; Start 01/25/24 at 09:00; Stop 02/24/24 at 08:59 Magnesium Sulfate 50 ml @ 0 mls/hr PROTOCOL PRN IV Last administered on 01/25/24at 12:18; Start 01/25/24 at 09:00; Stop 02/24/24 at 08:59 Insulin Human Regular INSULIN SLIDING SCAL... ACHS SQ Last administered on 01/27/24at 11:52; Start 01/25/24 at 11:30; Stop 02/24/24 at 11:29 Aspirin 81 mg HS PO Last administered on 01/26/24at 21:56; Start 01/25/24 at 21:00; Stop 02/24/24 at 08:59 Lactulose 20 gm Q6H6 PO Last administered on 01/27/24at 06:10; Start 01/25/24 at 12:00; Stop 02/24/24 at 11:59 JULY DE LA FUENTE MD Jan 27, 2024 13:55
[2024-01-27] MEDS ORDERED: COMPOUND IV REFRIGERATED 1 EACH IVSOLN MISC PRN (14:30)
[2024-01-27] MEDS: IRON sUCROse COMPLEX 300 MG in 0.9% NACL 250ML 250 ML IV ONE (15:55)
--- NOTE | 2024-01-27 21:06 | PN ---
INFECTIOUS DISEASE PROGRESS NOTE Date of Service: Jan 27, 2024 SUBJECTIVE: This is a 68-year-old female patient with past medical history of diabetes hypertension who presented to after sustaining a fall at home and having pelvis pain. Voiced pain mostly on the coccyx area. Patient is seen and examined at bedside in room 303. Patient is awake, alert and oriented x 3. 24 hour urine collection as recommended by Hematology is in process. Hemoglobin today is 9.9. Patient will get Venofer one dose today and tomorrow morning. No fever, temperature is 98.1. Discharge planning for tomorrow if stable. PHYSICAL EXAM EYES: Anicteric. Pupils equal and reactive. HENT: No oral thrush seen, moist Oral mucosa NECK: Supple, no JVD or thyromegaly. LUNGS: Good air entry. No rales, no rhonchi. CARDIOVASCULAR: S1, S2 regular. No murmur heard. ABDOMEN: Soft, non tender, bowel sounds present, no organomegaly CENTRAL NERVOUS SYSTEM: Awake, alert, oriented x 3. SKIN: No rashes, no swelling. LYMPHATICS: No peripheral lymphadenopathy MUSCULOSKELETAL: No joint swelling, erythema or tenderness. EXTREMITIES: No cyanosis or clubbing BACK: No deformity, no pressure ulcer. GENITOURINARY: No dysuria or hematuria Vital Sign (Last 12 Hours) 01/27/24 01/27/24 11:35 16:15 Temp 98.1 98.1 Pulse 83 73 Resp 18 18 B/P (MAP) 140/68 136/69 Pulse Ox 98 98 O2 Delivery Room Air Room Air Intake & Output (last 24hrs) 01/26/24 01/26/24 01/27/24 15:00 23:00 07:00 Intake Total 880 ml Output Total 450 ml Balance 880 ml -450 ml LABS: Laboratory: Test 01/27/24 19:57 01/27/24 09:54 01/26/24 14:04 Range/Units Whole Blood Glucose 178 H 70-110 MG/DL White Blood Count 8.8 4.8-10.8 K/uL Red Blood Count 3.50 L 4.00-5.50 MIL/uL Hemoglobin 9.9 L 12.0-16.0 g/dL Hematocrit 31.0 L 36-48 % Mean Corpuscular Volume 88.6 79-99 fL Mean Corpuscular Hemoglobin 28.3 27.0-33.0 pg Mean Corpuscular Hemoglobin Concent 31.9 L 32.0-36.0 g/dL Red Cell Distribution Width 14.3 11.0-15.5 % Platelet Count 248 130-400 K/uL Mean Platelet Volume 11.0 H 7.5-10.5 fL Nucleated Red Blood Cells 0.0 0.0-0.19 % Sodium Level 140 136-145 mmol/L Potassium Level 3.9 3.5-5.1 mmol/L Chloride Level 105 101-111 mmol/L Carbon Dioxide Level 26 21-32 mmol/L Blood Urea Nitrogen 20 H 7-18 mg/dL Creatinine 1.0 0.5-1.0 mg/dL Glomerular Filtration Rate Calc 61 >90 mL/min Random Glucose 203 H 70-105 mg/dL Total Calcium 8.7 8.5-10.1 mg/dL Magnesium Level 2.00 1.80-2.40 mg/dL Iron Level 26 L 50-170 mcg/dL Total Iron Binding Capacity 244 L 250-450 mcg/dL Percent Iron Saturation 10.6 L 22-44 % ASSESSMENT: Status post mechanical fall. Possible nondisplaced fracture of the sacrum. Acute renal failure, resolving. Diabetes mellitus. Anemia. Ruling out multiple myeloma. PLAN: Continue iron supplements as recommended by radio communications superintendent.. Continue pain management. Continue GI prophylaxis. Glucometer checks a.c./hs and cover with insulin per sliding scale protocol. We will monitor electrolytes. Discharge planning for tomorrow if stable. This case was reviewed and discussed with my supervising physician and the above assessment and plan was formulated and agreed upon. ATTESTATION BY PHYSICIAN I have seen and examined the patient. I reviewed the documentation, medical decision making, and treatment plan as noted by the mid-level provider above. I agree with the findings and plan of care. BRIONNA CHAU MD, MIRTA L [facility] Jan 27, 2024 21:06
[2024-01-28] VITALS: BP 134/65; PULSE 77; RESP 18; TEMP 98.4
[2024-01-28 04:00] VITALS: BP 129/71; PULSE 65; RESP 18; TEMP 98.6
[2024-01-28 08:00] VITALS: O2SAT 96
[2024-01-28 08:23] VITALS: BP 143/75; PULSE 100; RESP 18; TEMP 97.4
[2024-01-28] MEDS: IRON sUCROse COMPLEX 300 MG in 0.9% NACL 250ML 250 ML IV ONE (08:29)
[2024-01-28 09:11] LABS: FREE KAPPA LIGHT CHAINS,S 22.5 mg/L (3.3-19.4)
[2024-01-28 11:18] VITALS: BP 151/94; PULSE 79; RESP 17; TEMP 97.9
[2024-01-28 12:51] LABS: BASOPHILS # (AUTO) 0.05 K/uL (0.00-0.20); BASOPHILS % (AUTO) 0.7 % (0.0-5.0); EOSINOPHILS # (AUTO) 0.15 K/uL (0.00-0.70); HEMATOCRIT 30.6 % (36-48); IMMATURE GRANULOCYTE ABSOLUTE 0.04 K/uL (0-1); LYMPHOCYTES # (AUTO) 1.3 K/uL (1.0-4.8); LYMPHOCYTES % (AUTO) 17.2 % (21.0-51.0); MEAN CORPUSCULAR HEMOGLOBIN 28.8 pg (27.0-33.0); MEAN CORPUSCULAR HGB CONC 32.4 g/dL (32.0-36.0); MONOCYTES # (AUTO) 0.4 K/uL (0.1-1.0); MONOCYTES % (AUTO) 5.7 % (3.0-13.0); NEUTROPHILS # (AUTO) 5.7 K/uL (1.8-7.7); NEUTROPHILS % (AUTO) 73.9 % (40.0-77.0); PLATELET COUNT (AUTO) 232 K/uL (130-400); RED BLOOD CELL COUNT(AUTO) 3.44 MIL/uL (4.00-5.50); RED CELL DISTRIBUTION WIDTH 14.3 % (11.0-15.5); WHITE BLOOD COUNT (AUTO) 7.7 K/uL (4.8-10.8)
[2024-01-28 12:59] LABS: CREATININE 0.9 mg/dL (0.5-1.0)
--- NOTE | 2024-01-28 14:14 | DS ---
DISCHARGE SUMMARY DATE OF SERVICE: 01/28/2024 PRESENTING COMPLAINT: Fall and pelvic pain. HOSPITAL COURSE: A 68-year-old female with history of hypertension, dyslipidemia, diabetes mellitus, presented to the hospital with above complaint. Imaging was done, which was unremarkable. Due to persistent pain, CT of the pelvic was done which showed some ____ lesion in the acetabulum. Bone scan was done, which came back negative. The patient was seen by car inspection and repair manager and found to have iron deficiency anemia and was given iron infusion. The patient also underwent urine and serum protein electrophoresis. Result was pending. The patient is doing well clinically. Pain is much better. The patient cleared for discharge. FINAL DISCHARGE DIAGNOSES: * Mechanical fall. * Iron deficiency. * Diabetes mellitus. * Hypertension. * Acute renal failure which resolved. * Obesity. PLAN: * The patient to be discharged home. * The patient will be given ferrous sulfate. * Followup with car inspection and repair manager for ____ results. * Continue antihypertensive. * Continue antidiabetic. * Follow up with primary care physician. TID: [id number] RECEIPT: [id number]
[2024-01-29 14:10] LABS: ALPHA-1 (IFE & PEP) 0.2 g/dL (0.0-0.4); ALPHA-2 (IFE & PEP) 1.1 g/dL (0.4-1.0); GLOBULIN TOTAL (IFE) 3.3 g/dL (2.2-3.9); IGA (IFE) 266 mg/dL (87-352); IGG (IMMUNOFIXATION) 1038 mg/dL (586-1602); IGM (IMMUNOFIXATION) 83 mg/dL (26-217); M-SPIKE (IEP) Not Observed g/dL (Not Observed); TOTAL PROTEIN 6.3 g/dL (6.0-8.5)
[2024-01-30 16:10] LABS: GAMMA URINE 11.3 % (.)
== END 2024-01-28 14:05 | disposition home or self-care (01) | DRG 684 ==
LOC: EDH 20:12 → EDHIP 23:12 → 3AH 23:35
PROVIDERS: ADMIT Internal Medicine Infectious Disease; ATTEND Internal Medicine Infectious Disease
DX: N17.9 Acute kidney failure, unspecified (principal); I12.9 Hypertensive chronic kidney disease with stage 1 through stage 4 chronic kidney disease, or unspecified chronic kidney disease; N18.9 Chronic kidney disease, unspecified; E11.22 Type 2 diabetes mellitus with diabetic chronic kidney disease; E66.9 Obesity, unspecified; D50.9 Iron deficiency anemia, unspecified; E78.00 Pure hypercholesterolemia, unspecified; Z83.3 Family history of diabetes mellitus; S00.03XA Contusion of scalp, initial encounter; Z68.35 Body mass index [BMI] 35.0-35.9, adult; W01.0XXA Fall on same level from slipping, tripping and stumbling without subsequent striking against object, initial encounter; Y93.89 Activity, other specified; Y92.89 Other specified places as the place of occurrence of the external cause; Y99.8 Other external cause status
CPT/HCPCS: 36415; 70450; 72170; 72192; 72220; 78306; 80048; 81001; 82550; 82948; 83036; 83521; 83540; 83550; 83735; 84156; 84166; 85025; 85027; 86325; 86334; 96374; 99285; A9503; G0378; J1650; J1756; J1815; J2270; J3475; J7030; J7050